=== PATIENT | male | born 1985 | race Hispanic/Latino ===

== ENCOUNTER → 2017-12-19 | Outpatient (CLI) | payer OTHER | LOC: M RAD 08:41 | DX: M25.571 Pain in right ankle and joints of right foot (principal) | CPT/HCPCS: 73610 ==

== ENCOUNTER → 2018-01-07 | Outpatient (CLI) | payer OTHER | LOC: M RAD 09:01 | DX: M54.5 Low back pain (principal) | CPT/HCPCS: 72110 ==